=== PATIENT | female | born 1955 | race Caucasian/White ===

== ENCOUNTER 2018-07-11 07:40 | Emergency (ER) | payer OTHER ==
[2018-07-11 07:47] VITALS: BP 186/101
--- NOTE | 2018-07-11 08:00 | UC ---
Hand/Wrist HPI - HPI Summary HPI Summary: 63-year-old woman comes to clinic today with a complaint of right wrist pain after fall. She tripped and fell yesterday landing on an outstretched hand. Pain is in the distal radius at the base of the right thumb. She's having a hard time with supination which causes her greater pain. She is able to move her fingers is no numbness or weakness. Patient reports that she also injured her right second toe. It swollen and ecchymotic. It hurts more with ambulation but she is able to bear weight. Patient also struck her forehead she did not lose consciousness she's had no vision changes or difficulty with speech or confusion the lights do not bother her eyes no weakness numbness or signs of concussion. She is not on a blood thinner. - History Of Current Complaint Chief Complaint: UCUpperExtremity Stated Complaint: WRIST INJURY Time Seen by Provider: 07/11/18 07:49 Pain Intensity: 6 - Allergies/Home Medications Allergies/Adverse Reactions: Allergies Allergy/AdvReac Type Severity Reaction Status Date / Time No Known Allergies Allergy Verified 07/11/18 07:47 PMH/Surg Hx/FS Hx/Imm Hx Cardiovascular History: Hypertension - Surgical History Surgical History: Yes Surgery Procedure, Year, and Place: cataract removal - Family History Known Family History: Positive: Diabetes - Social History Alcohol Use: Rare Substance Use Type: None Smoking Status (MU): Never Smoked Tobacco Review of Systems Constitutional: Negative Skin: Negative Eyes: Negative ENT: Negative Respiratory: Negative Cardiovascular: Negative Gastrointestinal: Negative Motor: Decreased ROM - see hpi Neurovascular: Negative Musculoskeletal: Other: - see hpi Neurological: Negative Psychological: Negative Is Patient Immunocompromised?: No All Other Systems Reviewed And Are Negative: Yes Physical Exam Triage Information Reviewed: Yes Appearance: Well-Appearing, No Pain Distress, Well-Nourished Vital Signs: Initial Vital Signs Temp 98.1 F 07/11/18 07:44 Pulse 77 07/11/18 07:44 Resp 18 07/11/18 07:44 BP 186/101 07/11/18 07:44 Pulse Ox 99 07/11/18 07:44 Vital Signs Reviewed: Yes Eye Exam: Normal Eyes: Positive: Conjunctiva Clear Neck exam: Normal Neck: Positive: Supple Respiratory: Positive: No respiratory distress Musculoskeletal: Positive: Other: - The right wrist is tender in the snuffbox at the base of the right thumb and the distal right radius. Patient is able to supinate but he gives her pain. The elbow is nontender to palpation and has full range of motion. Fingers have full range of motion. The right second toe is ecchymotic and swollen and tender to palpation. The rest the foot is nontender to palpation. Neurological Exam: Normal Neurological: Positive: Alert, Muscle Tone Normal Psychological Exam: Normal Psychological: Positive: Normal Response To Family, Age Appropriate Behavior Skin: Positive: Other - Ecchymosis right second toe Hand/Wrist Course/Dx - Course Course Of Treatment: Order Information: TOE RIGHT 2ND. Accession Number: [id number]. CPT: 39655. INDICATION: Right second toe bruising after a fall. TECHNIQUE: 3 views of the right second toe were obtained. FINDINGS: The visualized bones are normal alignment. Joint spaces appear maintained. No. fracture is seen. IMPRESSION: NO EVIDENCE FOR FRACTURE. IF THE PATIENT'S SYMPTOMS PERSIST RECOMMEND FOLLOW-UP IMAGING. . <Electronically signed by Osiel Preston MD in [facility]> 07/11/18819. Order Information: WRIST RIGHT 3+ VWS. Accession Number: [id number]. CPT: 40956. HISTORY: pain s/p fall. COMPARISONS: None. VIEWS: 4 , Frontal, lateral, oblique, and scaphoid deviation views of the right wrist. 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 BONES: There is no displaced fracture. 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 ALIGNMENT: There is no dislocation. SOFT TISSUES: Unremarkable. OTHER FINDINGS : None. IMPRESSION: NO ACUTE OSSEOUS INJURY. IF SYMPTOMS PERSIST, RECOMMEND REPEAT IMAGING. . <Electronically signed by Chris Loja MD in [facility]> 07/11/18 0818. I discussed the x-ray reports with the patient. Plan on a thumb spica splint on the right due to the snuffbox tenderness. That was placed by nursing and patient is neurovascularly intact after the placement of the splint. Patient also struck her head and she has some ecchymosis on her forehead she did not lose consciousness not on a blood thinner there is no neurologic deficit her concussion symptoms. Discussed getting a head CT with the patient she declined at this time. The overall plan is to follow-up with her primary care doctor as needed. I did let her know that if the pain persists especially in the right wrist she may need further imaging to check the navicular bone. - Differential Dx/Diagnosis Provider Diagnoses: RIGHT WRIST SPRAIN. RIGHT SECOND TOE SPRAIN. HEAD INJURY Discharge - Sign-Out/Discharge Documenting (check all that apply): Patient Departure All imaging exams completed and their final reports reviewed: Yes - Discharge Plan Condition: Stable Disposition: HOME Patient Education Materials: Wrist Injury (ED), Head Injury (ED) Referrals: Michaela Hubbard MD [Primary Care Provider] - Additional Instructions: FOLLOW UP WITH YOUR DOCTOR IF NOT COMPLETELY IMPROVED. GET RECHECKED FOR ANY WORSENING OF YOUR CONDITION; YOUR WRIST PAIN DOES NOT COMPLETELY RESOLVE OR QUESTIONS OR CONCERNS. - Billing Disposition and Condition Condition: STABLE Disposition: Home
--- NOTE | 2018-07-11 08:21 | RAD ---
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 BONES: There is no displaced fracture. 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 ALIGNMENT: There is no dislocation. SOFT TISSUES: Unremarkable. OTHER FINDINGS: None. IMPRESSION: NO ACUTE OSSEOUS INJURY. IF SYMPTOMS PERSIST, RECOMMEND REPEAT IMAGING.
--- NOTE | 2018-07-11 08:24 | RAD ---
INDICATION: Right second toe bruising after a fall TECHNIQUE: 3 views of the right second toe were obtained. FINDINGS: The visualized bones are normal alignment. Joint spaces appear maintained. No fracture is seen. IMPRESSION: NO EVIDENCE FOR FRACTURE. IF THE PATIENT'S SYMPTOMS PERSIST RECOMMEND FOLLOW-UP IMAGING.
== END 2018-07-11 09:15 | disposition home or self-care (01) ==
LOC: UCEAST 07:40
DX: S63.501A Unspecified sprain of right wrist, initial encounter (principal); S93.504A Unspecified sprain of right lesser toe(s), initial encounter; S09.90XA Unspecified injury of head, initial encounter; W01.0XXA Fall on same level from slipping, tripping and stumbling without subsequent striking against object, initial encounter; Y92.9 Unspecified place or not applicable
CPT/HCPCS: 99202; G0463

== ENCOUNTER 2021-10-07 10:41 | Observation (INO) ==
[~2021-10-07 10:41] MED LIST: Buffered Lidocaine 1% SYRIN 1 ml INTRADERM ONE; Lactated Ringers 1000 ml BAG 1,000 ML IV SCH; Rocuronium 50 mg VIAL 10 mg/ml 5 ml VIAL (50 mg) ONE
[2021-10-07] MEDS ORDERED: ceFAZolin 2 GM in NS PREMIX 0 GM/0 ML BAG IVPB ONE (11:55)
[2021-10-07] MEDS ORDERED: Buffered Lidocaine 1% SYRIN 1 ml INTRADERM ONE (12:03)
[2021-10-07] MEDS ORDERED: ceFAZolin 2 GM in NS PREMIX 2 GM/100 ML BAG IVPB ONE (12:03)
[2021-10-07] MEDS ORDERED: Dexamethasone IV 4 MG/ML VIAL 1 ml VIAL ONE (13:12)
[2021-10-07] MEDS ORDERED: Propofol 10 MG/ML 20 ML BTL ONE (13:12)
[2021-10-07] MEDS ORDERED: Midazolam 2 mg/2 ml VIAL 1 mg/ml 2 ml VIAL (2 mg) ONE ×2 (13:12→16:43)
[2021-10-07] MEDS ORDERED: fentaNYL 100 mcg/2 ml 50 MCG/ML VIAL ONE ×2 (13:12→17:43)
[2021-10-07] MEDS ORDERED: Ondansetron 4 mg VIAL 2 MG/ML 2 ml VIAL ONE (13:12)
[2021-10-07] MEDS ORDERED: Lidocaine 2% PF 5 ML VIAL ONE (13:13)
[2021-10-07] MEDS ORDERED: Lactulose 30 ml UDC PO PRN (14:15)
[2021-10-07] MEDS ORDERED: Magnesium Hydroxide LIQ 30 ML UDC PO PRN (14:15)
[2021-10-07] MEDS ORDERED: Lidocaine 1% MPF 5 ML VIAL ONE (14:15)
[2021-10-07] MEDS ORDERED: diPHENhydraMINE 25 mg TAB PO PRN (14:15)
[2021-10-07] MEDS ORDERED: Morphine 2 MG/ML SYRINGE IV PRN (14:15)
[2021-10-07] MEDS ORDERED: diPHENhydraMINE IV 50 MG/ML 1 ml VIAL (BENADRYL) IV PRN (14:15)
[2021-10-07] MEDS ORDERED: Ondansetron 4 mg VIAL 2 MG/ML 2 ml VIAL IV PRN (14:15)
[2021-10-07] MEDS ORDERED: Ondansetron ODT 4 mg TAB 4 MG TAB PO PRN (14:15)
[2021-10-07] MEDS ORDERED: ROPIVACAINE 5 MG/ML 30 ML BTL (0.5%) ONE (14:16)
[2021-10-07] MEDS ORDERED: Lidocaine 2% w/ EPI 1:200,000 MPF 20 ML SDV VIAL ONE (14:18)
[2021-10-07] MEDS ORDERED: Bupivacaine 0.5% SDV PF 30ML VIAL ONE (14:18)
[2021-10-07] MEDS ORDERED: Lactated Ringers 1000 ml BAG 1,000 ML IV SCH (15:00)
[2021-10-07] MEDS ORDERED: EPHEDrine (Pressors) 50 MG/ML VIAL ONE (15:25)
[2021-10-07] MEDS ORDERED: Phenylephrine IV 10 MG/ML 1 ml VIAL ONE (15:40)
[2021-10-07] MEDS ORDERED: Glycopyrrolate IV 0.2 MG/ML 1 ML VIAL ONE (16:06)
[2021-10-07] MEDS ORDERED: Rocuronium 50 mg VIAL 10 mg/ml 5 ml VIAL (50 mg) ONE (16:11)
[2021-10-07] MEDS ORDERED: Acetaminophen IV 1 GM/100ML 100 ML IV ONE (18:18)
[2021-10-07 19:21] LABS: Hematocrit 27 % (35-47); Hemoglobin 9.5 g/dL (12.0-16.0)
[2021-10-07] MEDS: Magnesium Hydroxide LIQ 30 ML UDC PO SCH (22:00)
[2021-10-07] MEDS: ceFAZolin 1 GM ADVAN 1 GM in NS 0.9% 50 ML 50 ML IVPB SCH (23:39)
[2021-10-08 02:07] LABS: ABS Lymphocytes 0.9 10^3/ul (1.0-4.8); ABS Monocytes 0.8 10^3/ul (0-0.8); ABS Neutrophils 15.2 10^3/ul (1.5-7.7); Hematocrit 28 % (35-47); Hemoglobin 9.7 g/dL (12.0-16.0); Lymphocyte % 5.3 %; Mean Corpuscular HGB Conc 34 g/dL (31-36); Mean Corpuscular Hemoglobin 31 pg (27-31); Mean Corpuscular Volume 91 fL (80-97); Mean Platelet Volume 8.4 fL (7.4-10.4); Platelet Count 412 10^3/uL (150-450); Red Blood Count 3.12 10^6 /uL (3.70-4.87); Red Cell Distribution Width 14 % (10-15); White Blood Count 16.9 10^3/uL (3.5-10.8)
[2021-10-08 07:20] LABS: Hematocrit 25 % (35-47); Hemoglobin 8.7 g/dL (12.0-16.0); Mean Platelet Volume 8.6 fL (7.4-10.4); Platelet Count 357 10^3/uL (150-450)
[2021-10-08] MEDS: ceFAZolin 1 GM ADVAN 1 GM in NS 0.9% 50 ML 50 ML IVPB SCH ×2 (07:26→15:03)
[2021-10-08 07:27] LABS: Calcium 8.6 mg/dL (8.6-10.3); Potassium 4.1 mmol/L (3.5-5.0); eGFR CKD-EPI 93.1 (>60)
[2021-10-08] MEDS: Magnesium Hydroxide LIQ 30 ML UDC PO SCH ×2 (08:58→21:31)
[2021-10-08] MEDS: Vitamin THERAPEUTIC TAB PO SCH (08:58)
[2021-10-08 12:54] LABS: Hematocrit 27 % (35-47); Mean Corpuscular HGB Conc 34 g/dL (31-36); Mean Corpuscular Hemoglobin 30 pg (27-31); Mean Corpuscular Volume 89 fL (80-97); Platelet Count 431 10^3/uL (150-450); Red Blood Count 3.01 10^6 /uL (3.70-4.87); Red Cell Distribution Width 14 % (10-15); White Blood Count 19.1 10^3/uL (3.5-10.8)
[2021-10-08 13:13] LABS: ABS Lymphocytes 1.5 10^3/ul (1.0-4.8); ABS Neutrophils 15.6 10^3/ul (1.5-7.7); Lymphocyte % 7.7 %
[2021-10-08 14:34] LABS: Erythrocyte Sed Rate 33 mm/Hr (0-29)
[2021-10-08 15:12] LABS: Urine Appearance Cloudy; Urine Bilirubin Negative (Negative); Urine Blood Negative (Negative); Urine Color Yellow; Urine Glucose Negative (Negative); Urine Ketones Negative (Negative); Urine Nitrite Negative (Negative); Urine Protein Negative (Negative); Urine Specific Gravity 1.032 (1.002-1.030); Urine Urobilinogen Negative (Negative)
[2021-10-08 15:17] LABS: Urine Bacteria Absent (Absent); Urine Red Blood Cell Absent (Absent); Urine Squamous Epithelial Cell Present (Absent); Urine White Blood Cell 3+(>20/hpf) (Absent)
[2021-10-09 05:36] LABS: Hematocrit 23 % (35-47); Hemoglobin 7.8 g/dL (12.0-16.0); Mean Platelet Volume 8.5 fL (7.4-10.4); Platelet Count 324 10^3/uL (150-450)
[2021-10-09] MEDS: Magnesium Hydroxide LIQ 30 ML UDC PO SCH (08:28)
[2021-10-09] MEDS: Vitamin THERAPEUTIC TAB PO SCH (08:35)
[2021-10-09 10:12] LABS: ABS Basophils 0.1 10^3/ul (0-0.2); ABS Eosinophils 0.1 10^3/ul (0-0.6); ABS Lymphocytes 1.9 10^3/ul (1.0-4.8); ABS Monocytes 1.4 10^3/ul (0-0.8); ABS Neutrophils 9.6 10^3/ul (1.5-7.7); Eosinophil % 0.5 %; Lymphocyte % 14.7 %; Mean Corpuscular HGB Conc 34 g/dL (31-36); Mean Corpuscular Hemoglobin 30 pg (27-31); Mean Corpuscular Volume 90 fL (80-97); Red Blood Count 2.59 10^6 /uL (3.70-4.87); Red Cell Distribution Width 14 % (10-15)
[2021-10-09 11:03] VITALS: BP 104/69
[2021-10-09 12:55] LABS: % Iron Saturation 17 % (14 - 50); Total Iron Binding Capacity 217 mcg/dL (250 - 400)
[2021-10-09 14:00] LABS: Hematocrit 25 % (35-47); Hemoglobin 8.3 g/dL (12.0-16.0)
== END 2021-10-09 15:15 | disposition home or self-care (01) ==
LOC: SSU 10:41 → OR 10:41
PROVIDERS: ADMIT Orthopaedic Surgery Sports Medicine; ATTEND Orthopaedic Surgery Sports Medicine